=== PATIENT | female | born 1975 | race Caucasian/White ===

== ENCOUNTER → 2018-10-29 | Outpatient (REF) | payer OTHER ==
[2018-10-29 11:51] LABS: INFLUENZA A AMPLIFICATION NEGATIVE (NEGATIVE); INFLUENZA B AMPLIFICATION NEGATIVE (NEGATIVE)
== END ==
LOC: M LAB REF 10:28
PROVIDERS: ATTEND Physician Assistant Medical
DX: J11.1 Influenza due to unidentified influenza virus with other respiratory manifestations (principal)

== ENCOUNTER 2020-01-14 12:29 | Day surgery (SDC) | payer OTHER ==
[~2020-01-14] VITALS: Ht 170.2 cm; Wt 80.3 kg
[2020-01-14] MEDS ORDERED: MIDAZOLAM INJ 2MG/2ML VIAL (J2250 PER 1MG) As Ordered ONE (12:58)
[2020-01-14] MEDS ORDERED: propofoL 200 MG/20 ML VIAL As Ordered ONE ×2 (12:58→13:41)
[2020-01-14] MEDS ORDERED: LIDOCAINE 2% 100MG/5ML SDV (FOR ANES.) As Ordered ONE (12:58)
[2020-01-14] MEDS ORDERED: fentaNYL 100 MCG/2 ML INJECTION (J3010) As Ordered ONE (12:58)
[2020-01-14] MEDS ORDERED: ZOLO50TA PO (13:14)
[2020-01-14] MEDS ORDERED: AMOX875T PO (13:14)
[2020-01-14] MEDS ORDERED: ceFAZolin SOD 2 GM in IV 1 EA IV ONE (13:30)
[2020-01-14] MEDS ORDERED: BUPIVACAINE HCL 0.25% 30ML VIAL As Ordered ONE (13:30)
[2020-01-14] MEDS ORDERED: LR 1,000 ML IV ONE (13:30)
[2020-01-14 15:10] VITALS: BP 121/67
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
== END 2020-01-14 15:12 | disposition home or self-care (01) ==
LOC: M SDC 12:29
PROVIDERS: ATTEND Orthopaedic Surgery Sports Medicine
DX: S62.664A Nondisplaced fracture of distal phalanx of right ring finger, initial encounter for closed fracture (principal); S61.318A Laceration without foreign body of other finger with damage to nail, initial encounter; V86.75XA Person on outside of 3- or 4- wheeled all-terrain vehicle (ATV) injured in nontraffic accident, initial encounter; Y92.89 Other specified places as the place of occurrence of the external cause; F32.9 Major depressive disorder, single episode, unspecified; Z79.899 Other long term (current) drug therapy
CPT/HCPCS: 11740; 12031; 81025; J0690; J2250; J3010; U0002

== ENCOUNTER → 2021-07-29 | Outpatient (CLI) | payer BC ==
[~2021-07-29] MED LIST: AMOX875T PO; ZOLO50TA PO
== END ==
LOC: M LABSMTC 09:36
PROVIDERS: ATTEND Family Medicine
DX: Z20.822 Contact with and (suspected) exposure to COVID-19 (principal)
CPT/HCPCS: C9803; U0003

== ENCOUNTER → 2023-08-03 | Outpatient (CLI) | payer BC ==
[2023-08-03 11:39] LABS: BASO # 0.1 10^3/uL (0.0-0.2); EOS # 0.1 10^3/uL (0.0-0.5); EOS % 1.7 % (0.0-3.0); HEMATOCRIT 45.3 % (36.0-47.0); HEMOGLOBIN 14.5 g/dl (12.0-15.5); LYMPH # 2.4 10^3/uL (1.5-5.0); LYMPH % 30.1 % (24.0-44.0); MEAN CORPUSCULAR HEMOGLOBIN 29.6 pg (27.0-33.0); MEAN CORPUSCULAR VOLUME 92.4 fl (80.0-96.0); MONO # 0.6 10^3/uL (0.0-0.8); MONO % 7.1 % (2.0-8.0); NEUTROPHILS # 4.7 10^3/uL (1.5-8.5); NEUTROPHILS % 59.7 % (36.0-66.0); PLATELET COUNT, AUTOMATED 274 10^3/uL (150-450); WHITE BLOOD COUNT 7.8 10^3/uL (4.0-10.0)
[2023-08-03 12:00] LABS: ERYTHROCYTE SEDIMENTATION RATE 31 mm/hr (0-20)
[2023-08-03 12:04] LABS: ALBUMIN 4.2 G/DL (3.2-5.2); ALKALINE PHOSPHATASE 59 U/L (46-116); ALT/SGPT 23 U/L (7.0-40); AST/SGOT 14 U/L (<34); BILIRUBIN,TOTAL 0.5 MG/DL (0.3-1.2); BLOOD UREA NITROGEN 16 MG/DL (9-23); CALCIUM LEVEL 9.2 MG/DL (8.5-10.1); CARBON DIOXIDE LEVEL 26 MMOL/L (20-31); CHLORIDE LEVEL 104 MMOL/L (98-107); CREATININE FOR GFR 0.82 MG/DL (0.55-1.30); GLOMERULAR FILTRATION RATE > 60.0 (>58); GLUCOSE, FASTING 82 MG/DL (60-100); POTASSIUM SERUM 3.7 MMOL/L (3.5-5.1); RHEUMATOID FACTOR QUANT 6.2 IU/ML (<14); SODIUM LEVEL 139 MMOL/L (136-145); TOTAL PROTEIN 7.6 G/DL (5.7-8.2)
[2023-08-14 16:12] LABS: CYCLIC CITRULLINATED PEPTIDE 8 units (0-19)
== END ==
LOC: M LAB 10:53
PROVIDERS: ATTEND Nurse Practitioner Family
DX: L20.9 Atopic dermatitis, unspecified (principal)